=== PATIENT | female | born 1970 | race Caucasian/White ===

== ENCOUNTER 2017-05-29 17:34 | Emergency (ER) | payer MEDICAID ==
--- NOTE | 2017-05-29 18:33 | C.PDOC ---
History Of Present Illness 46 y/o female presents to ED with complaints of cough, congestion and sore throat for 1 week. As per who is at bedside symptoms are keeping patient up at night unable to sleep. Patient reports chest tightness when taking deep breaths denies nasal congestion, fever, runny nose, sob or any other complaints at this time. Time Seen by Provider: 05/29/17 18:23 Chief Complaint (Nursing): Chest Pain History Per: Patient History/Exam Limitations: no limitations Onset/Duration Of Symptoms: Days Current Symptoms Are (Timing): Still Present Quality: Tightness Past Medical History Reviewed: Historical Data, Nursing Documentation, Vital Signs Vital Signs: Last Vital Signs Temp 97.9 F 05/29/17 18:34 Pulse 78 05/29/17 18:34 Resp 18 05/29/17 18:34 BP 155/90 H 05/29/17 18:34 Pulse Ox 100 05/29/17 18:37 - Medical History PMH: Depression, Hypothyroidism Surgical History: No Surg Hx Family History: States: No Known Family Hx - Social History Hx Alcohol Use: No Hx Substance Use: No - Immunization History Hx Tetanus Toxoid Vaccination: No Hx Influenza Vaccination: No Hx Pneumococcal Vaccination: No Review Of Systems Constitutional: Negative for: Fever, Chills ENT: Positive for: Throat Pain. Negative for: Nose Congestion Cardiovascular: Positive for: Chest Pain (tightness) Respiratory: Positive for: Cough Gastrointestinal: Negative for: Nausea, Vomiting Skin: Negative for: Rash Physical Exam - Physical Exam Appears: Non-toxic, No Acute Distress Skin: Normal Color, Warm, Dry, No Rash Head: Atraumatic, Normacephalic Eye(s): bilateral: Normal Inspection Ear(s): Bilateral: Normal Oral Mucosa: Moist Throat: Normal, No Erythema, No Exudate Neck: Normal ROM, Supple Lymphatic: Normal Exam, No Adenopathy Cardiovascular: Rhythm Regular Respiratory: Normal Breath Sounds, No Rales, No Rhonchi, No Wheezing Extremity: Normal ROM, Capillary Refill (<2 seconds) Neurological/Psych: Oriented x3 ED Course And Treatment - Laboratory Results Lab Interpretation: Normal (strep negative) O2 Sat by Pulse Oximetry: 100 (RA) Pulse Ox Interpretation: Normal - Radiology CXR: Interpreted by Me CXR Interpretation: Yes: No Acute Disease Reevaluation Time: 20:36 Reassessment Condition: Improved (Patient remains comfortable in ED. No evidence of respiratory distress or cough noted. she is c/o headache and was treated with Tylenol.) Disposition Counseled Patient/Family Regarding: Studies Performed, Diagnosis, Need For Followup, Rx Given - Disposition Referrals: [facility] [Outside] Disposition: HOME/ ROUTINE Disposition Time: 20:37 Condition: STABLE Prescriptions: Promethazine HCl/Codeine [Prometh-Codein 6.25-10 mg/5 ml] 5 ml PO QID PRN #60 ml PRN Reason: Cough Instructions: Upper Respiratory Infection (ED) Forms: Present (Greek) Print Language: PAKISTANI - Clinical Impression Clinical Impression: Upper respiratory infection - Scribe Statement The provider has reviewed the documentation as recorded by the Kellyibeugenia Ramires All medical record entries made by the Kellyibeugenia were at my direction and personally dictated by me. I have reviewed the chart and agree that the record accurately reflects my personal performance of the history, physical exam, medical decision making, and the department course for this patient. I have also personally directed, reviewed, and agree with the discharge instructions and disposition.
[2017-05-29 20:43] VITALS: BP 135/86; PULSE 70; RESP 16; TEMP 98; O2SAT 98
--- NOTE | 2017-05-30 08:29 | RAD ---
HISTORY: cough COMPARISON: None TECHNIQUE: Chest PA and lateral FINDINGS: LUNGS: No focal consolidation is seen. PLEURA: No pleural effusion is identified. CARDIOVASCULAR: Heart size is within normal limits. OSSEOUS STRUCTURES: Visualized osseous structures are unremarkable. VISUALIZED UPPER ABDOMEN: Unremarkable. OTHER FINDINGS: None. IMPRESSION: No acute cardiopulmonary process seen.
--- NOTE | 2017-05-30 14:10 | CARD ---
APPROVED REPORT EKG Measurement Heart [id number] <Conclusion> Normal sinus rhythm Normal ECG
== END 2017-05-29 20:42 | disposition home or self-care (01) ==
LOC: C.ER 17:34
DX: J06.9 Acute upper respiratory infection, unspecified (principal)

== ENCOUNTER 2017-09-18 20:40 | Emergency (ER) | payer MEDICAID ==
[2017-09-18 21:01] VITALS: RESP 20
[2017-09-18] MEDS ORDERED: Sodium Chloride 0.9% 1,000 ML IV ONE (21:30)
--- NOTE | 2017-09-18 21:35 | C.PDOC ---
History Of Present Illness 47 year old female, whose PMHx includes kidney stones, presents to the ED for evaluation of bilateral lower back pain associated with occasional lower pelvic pain which has been intermittent for 2 weeks. Patient states symptoms are worse with movement and complains of occasional urinary incontinence. She took Tylenol this morning with some relief. Patient reports experiencing similar pain in the past and is concerned for kidney stones. She denies fever, chills, vomiting, dysuria, upper/lower extremity numbness/weakness, or recent trauma/ falls. Time Seen by Provider: 09/18/17 21:13 Chief Complaint (Nursing): Female Genitourinary History Per: Patient History/Exam Limitations: no limitations Onset/Duration Of Symptoms: Intermittent Episodes (2 weeks ) Current Symptoms Are (Timing): Still Present Quality Of Discomfort: "Pain" Associated Symptoms: denies: Fever, Chills, Nausea, Vomiting Additional History Per: Patient Abnormal Vaginal Bleeding: No Past Medical History Reviewed: Historical Data, Nursing Documentation, Vital Signs Vital Signs: Last Vital Signs Temp 98.4 F 09/18/17 20:57 Pulse 78 09/18/17 20:57 Resp 20 09/18/17 20:57 BP 156/90 H 09/18/17 20:57 Pulse Ox 98 09/18/17 21:39 - Medical History PMH: Bipolar Disorder, Depression, Hypothyroidism, Kidney Stones, Schizophrenia Denies: Chronic Kidney Disease Surgical History: No Surg Hx Family History: States: Unknown Family Hx - Social History Hx Alcohol Use: No Hx Substance Use: No - Immunization History Hx Tetanus Toxoid Vaccination: No Hx Influenza Vaccination: No Hx Pneumococcal Vaccination: No Review Of Systems Constitutional: Negative for: Fever, Chills Gastrointestinal: Negative for: Vomiting Genitourinary: Positive for: Incontinence (urinary ), Pelvic Pain (lower ) Musculoskeletal: Positive for: Back Pain (bilateral, lower ) Neurological: Negative for: Weakness, Numbness Physical Exam - Physical Exam Appears: Non-toxic, No Acute Distress Skin: Normal Color, Warm, Dry Head: Atraumatic, Normacephalic Eye(s): bilateral: Normal Inspection Oral Mucosa: Moist Neck: Supple Chest: Symmetrical, No Deformity, No Tenderness Cardiovascular: Rhythm Regular, No Murmur Respiratory: Normal Breath Sounds, No Rales, No Rhonchi, No Wheezing Gastrointestinal/Abdominal: Soft, No Tenderness, No Guarding, No Rebound Back: No CVA Tenderness, Paraspinal Tenderness (mild, to bilateral lower back regions ) Pelvic: Other (mild tenderness to bilateral pelvic quadrants on palpation ) Extremity: Normal ROM, No Tenderness, Capillary Refill (less than 2 seconds ), No Deformity, No Swelling Neurological/Psych: Oriented x3, Normal Speech, Normal Cognition Gait: Steady ED Course And Treatment - Laboratory Results Result Diagrams: 09/18/17 21:52 09/18/17 21:52 Lab Interpretation: No Acute Changes O2 Sat by Pulse Oximetry: 98 (on RA) Pulse Ox Interpretation: Normal - CT Scan/US CT abdomen and pelvis Other Rad Studies (CT/US): Read By Radiologist, Radiology Report Reviewed CT/US Interpretation: Accession No. : [id number]. Patient Name / ID : ARPAN SELLERS / [id number]. Exam Date : 09/18/2017 22:14:05 ( Approved ). Study Comment : Sex / Age : F / 47Y. Creator : LEOLA YARBROUGH. Dictator : Aviation Program Manager : Nurse Discharge Planner : LEOLA YARBROUGH. Approver2 : Report Date : 09/18/2017 23:00:00. My Comment : . [facility] Division of Radiology. [address] [place] [address]. Tel. no. . . . Patient Name: MARLO TREJO . Pt. Address: [address] [place] [address] Rec #: [id number]. [place] [address]: Perez DANIELS,Trisha Hargrove. Pt Order Location: [facility] : 1970 Female Age: 47 Order #: [id number]. Reason for exam: abd pain. . . . . . CT Scan. . . ABD PELVIS W/O PO OR IV CONT Exam Date: 09/18/17. . This imaging exam was performed at [facility]. EXAM: CT Abdomen and Pelvis Without Intravenous Contrast. . CLINICAL HISTORY : 47 years old, female; Pain; Abdominal pain; Flank; Lower; Additional info: Abd pain. . TECHNIQUE: Axial computed tomography images of the abdomen and pelvis without. intravenous contrast. All CT scans at this facility use one or more dose. reduction techniques, viz.: automated exposure control; ma/kV adjustment per. patient size (including targeted exams where dose is matched to indication;. i.e. head); or iterative reconstruction technique. Coronal and sagittal reformatted images were created and reviewed. . COMPARISON: No relevant prior studies available. . FINDINGS: Lung bases: Unremarkable. No mass. No consolidation. . ABDOMEN: Liver: There is diffuse mild enlargement of the liver measuring 19.6 cm. Gallbladder and bile ducts: Unremarkable. No calcified stones. No ductal. dilation. Pancreas: Unremarkable. No ductal dilation. Spleen: There is mild nonspecific splenomegaly measuring 15 cm. Adrenals: Unremarkable. No mass. Kidneys and ureters: Unremarkable. No obstructing stones. No. hydronephrosis. Stomach and bowel: Unremarkable. No obstruction. No mucosal thickening. . PELVIS: Appendix: No appendix is specifically identified. There is no evidence of fluid collections or inflammatory stranding in the. right lower quadrant. Bladder: Unremarkable. No stones. Reproductive: There are two low density structures in the left ovary. measuring up to 2 cm likely ovarian follicles. . ABDOMEN and PELVIS: Intraperitoneal space: Unremarkable. No free air. No significant fluid. collection. Bones/joints: No acute fracture. No dislocation. Soft tissues: Unremarkable. Vasculature: Unremarkable. No abdominal aortic aneurysm. Lymph nodes: Unremarkable. No enlarged lymph nodes. . IMPRESSION: No acute findings. . No nephrolithiasis or obstructive uropathy. . Mild hepatosplenomegaly. . Dictated By: Leola Durán MD. Dictated Date/Time: 09/18/172299. Signed By: Leola Yarbrough MD. Date Signed: 09/18/172299. Transcribed By: [facility]. Transcribe Date/Time : 09/18/172299. ADIA/BEST Progress Note: Bloodwork, urinalysis, CT A/P ordered and reviewed. Toradol IVP and IV Fluids administered. Reevaluation Time: 23:38 Reassessment Condition: Improved (Patient remains comfortable in ED.) Disposition Counseled Patient/Family Regarding: Studies Performed, Diagnosis, Need For Followup, Rx Given - Disposition Referrals: Carlie Guzman APN [Advanced Practice Nurse] - Disposition: HOME/ ROUTINE Disposition Time: 23:44 Condition: STABLE Prescriptions: Cyclobenzaprine [Cyclobenzaprine HCl] 10 mg PO TID PRN #14 tab PRN Reason: Muscle Spasm Instructions: Low Back Pain in Adults Forms: [employer] (Nigerian) Print Language: QATARI - Clinical Impression Clinical Impression: Musculoskeletal back pain - Scribe Statement The provider has reviewed the documentation as recorded by the Scribe (Kacey Puente) Provider Attestation: All medical record entries made by the Scribe were at my direction and personally dictated by me. I have reviewed the chart and agree that the record accurately reflects my personal performance of the history, physical exam, medical decision making, and the department course for this patient. I have also personally directed, reviewed, and agree with the discharge instructions and disposition.
[2017-09-18] MEDS ORDERED: Sodium Chloride 0.9% 1,000 ML ONE (21:55)
[2017-09-18 21:58] LABS: HCG,QUALITATIVE URINE NEGATIVE (NEGATIVE)
[2017-09-18 22:03] LABS: SQUAMOUS EPITHIAL 4 /hpf (0-5); URINE BILIRUBIN NEGATIVE (NEGATIVE); URINE BLOOD NEGATIVE (NEGATIVE); URINE CLARITY Clear (Clear); URINE COLOR Straw (YELLOW); URINE GLUCOSE (UA) NORMAL (Normal); URINE LEUKOCYTE ESTERASE NEG Leu/uL (Negative); URINE PROTEIN NEGATIVE (NEGATIVE); URINE UROBILINOGEN NORMAL mg/dL (0.2-1.0)
[2017-09-18 22:05] LABS: BASO % 0.2 % (0.0-2.0); EOS % 0.5 % (0.0-4.0); HEMOGLOBIN 11.9 g/dL (11.0-16.0); LYMPH # 2.3 K/uL (1.0-4.3); LYMPH % 33.4 % (20.0-40.0); MEAN CELL VOLUME 80.7 fL (81.0-99.0); MEAN CORPUSCULAR HEMOGLOBIN 27.6 pg (27.0-31.0); MEAN CORPUSCULAR HGB CONC 34.2 g/dL (33.0-37.0); MEAN PLATELET VOLUME 8.5 fL (7.2-11.7); MONO # 0.5 K/uL (0.0-0.8); MONO % 6.9 % (0.0-10.0); NEUT # 4.1 K/uL (1.8-7.0); NRBC % 0.2 % (0.0-2.0); RBC 4.33 Mil/uL (3.80-5.20); RED CELL DISTRIBUTION WIDTH 13.4 % (11.5-14.5); WHITE BLOOD COUNT 6.9 K/uL (4.8-10.8)
[2017-09-18 22:08] LABS: ALB/GLOB RATIO 1.2 (1.0-2.1); ALBUMIN 4.1 g/dL (3.5-5.0); ALT/SGPT 36 U/L (9-52); AST/SGOT 39 U/L (14-36); BLOOD UREA NITROGEN 10 mg/dL (7-17); CALCIUM 8.5 mg/dl (8.6-10.4); GFR AFRICAN-AMERICAN > 60; GFR NON-AFRICAN AMERICAN > 60
--- NOTE | 2017-09-18 23:01 | CT ---
EXAM: CT Abdomen and Pelvis Without Intravenous Contrast CLINICAL HISTORY: 47 years old, female; Pain; Abdominal pain; Flank; Lower; Additional info: Abd pain TECHNIQUE: Axial computed tomography images of the abdomen and pelvis without intravenous contrast. All CT scans at this facility use one or more dose reduction techniques, viz.: automated exposure control; ma/kV adjustment per patient size (including targeted exams where dose is matched to indication; i.e. head); or iterative reconstruction technique. Coronal and sagittal reformatted images were created and reviewed. COMPARISON: No relevant prior studies available. FINDINGS: Lung bases: Unremarkable. No mass. No consolidation. ABDOMEN: Liver: There is diffuse mild enlargement of the liver measuring 19.6 cm. Gallbladder and bile ducts: Unremarkable. No calcified stones. No ductal dilation. Pancreas: Unremarkable. No ductal dilation. Spleen: There is mild nonspecific splenomegaly measuring 15 cm. Adrenals: Unremarkable. No mass. Kidneys and ureters: Unremarkable. No obstructing stones. No hydronephrosis. Stomach and bowel: Unremarkable. No obstruction. No mucosal thickening. PELVIS: Appendix: No appendix is specifically identified. There is no evidence of fluid collections or inflammatory stranding in the right lower quadrant. Bladder: Unremarkable. No stones. Reproductive: There are two low density structures in the left ovary measuring up to 2 cm likely ovarian follicles. ABDOMEN and PELVIS: Intraperitoneal space: Unremarkable. No free air. No significant fluid collection. Bones/joints: No acute fracture. No dislocation. Soft tissues: Unremarkable. Vasculature: Unremarkable. No abdominal aortic aneurysm. Lymph nodes: Unremarkable. No enlarged lymph nodes. IMPRESSION: No acute findings. No nephrolithiasis or obstructive uropathy. Mild hepatosplenomegaly.
[2017-09-18 23:58] VITALS: BP 150/90; PULSE 70; TEMP 97.6; O2SAT 96
== END 2017-09-18 23:58 | disposition home or self-care (01) ==
LOC: C.ER 20:40
DX: M54.5 Low back pain (principal)
CPT/HCPCS: 74176; 80053; 81001; 84703; 85025; 96361; 96374; 99283; J1885; J7040

== ENCOUNTER 2018-06-03 19:18 | Emergency (ER) | payer MEDICAID ==
--- NOTE | 2018-06-03 19:37 | C.PDOC ---
History Of Present Illness 47 year old female presents to the ED c/o cough, congestion for the last 2 weeks. Contrary to triage patient denies SOB on exertion. Patient states she is not able to sleep at night due to her cough. Patient saw her PMD who gave her an albuterol inhaler. Patient denies fever, chills, headache, CP, palpitations, rash, weakness, numbness. Time Seen by Provider: 06/03/18 19:36 Chief Complaint (Nursing): Cough, Cold, Congestion History Per: Patient History/Exam Limitations: no limitations Onset/Duration Of Symptoms: Days Current Symptoms Are (Timing): Still Present Recent travel outside of the [place]: No Additional History Per: Patient Past Medical History Reviewed: Historical Data, Nursing Documentation, Vital Signs Vital Signs: Last Vital Signs Temp 98.2 F 06/03/18 19:19 Pulse 74 06/03/18 19:19 Resp 20 06/03/18 19:19 BP 135/82 06/03/18 19:19 Pulse Ox 99 06/03/18 19:19 - Medical History PMH: Bipolar Disorder, Depression, Hypothyroidism, Kidney Stones, Schizophrenia Denies: Chronic Kidney Disease Surgical History: No Surg Hx Family History: States: Unknown Family Hx - Social History Hx Alcohol Use: No Hx Substance Use: No - Immunization History Hx Tetanus Toxoid Vaccination: No Hx Influenza Vaccination: No Hx Pneumococcal Vaccination: No Review Of Systems Constitutional: Negative for: Fever, Chills ENT: Positive for: Nose Congestion Cardiovascular: Negative for: Chest Pain, Palpitations Respiratory: Positive for: Cough. Negative for: Shortness of Breath Gastrointestinal: Negative for: Nausea, Vomiting, Abdominal Pain Skin: Negative for: Rash Neurological: Negative for: Weakness, Numbness, Headache Physical Exam - Physical Exam Appears: Non-toxic, No Acute Distress Skin: Warm, Dry Head: Normacephalic Eye(s): bilateral: Normal Inspection Oral Mucosa: Moist Throat: No Erythema, No Exudate Neck: Supple Chest: Symmetrical Cardiovascular: Rhythm Regular Respiratory: No Rales, No Rhonchi, No Wheezing Gastrointestinal/Abdominal: Soft, No Tenderness, No Guarding, No Rebound Extremity: Bilateral: Atraumatic, Normal Color And Temperature, Normal ROM Neurological/Psych: Oriented x3, Normal Speech, Normal Cognition Gait: Steady ED Course And Treatment ECG: Interpreted By Me, Viewed By Me ECG Rhythm: Sinus Rhythm (71), Nonspecific Changes O2 Sat by Pulse Oximetry: 99 (On RA) Pulse Ox Interpretation: Normal Progress Note: Plan: - Tessalon perles 100 mg PO. - Zithromax 500 mg PO. - Influenza. - Rapid adia. - Throat culture Reevaluation Time: 21:07 Reassessment Condition: Improved Medical Decision Making Medical Decision Making: Upon provider reevaluation patient is feeling better, is medically stable, and requires no further treatment in the ED at this time. Patient will be discharged home with Rx for zithromax, tessalon pereles. Counseling was provided and all questions were answered regarding diagnosis and need for follow up with the referred clinic. There is agreement to discharge plan. Return if symptoms persist or worsen. Disposition Counseled Patient/Family Regarding: Studies Performed, Diagnosis, Need For Followup, Rx Given - Disposition Referrals: Chucky Luis MD [Staff Provider] - Disposition: HOME/ ROUTINE Disposition Time: 19:37 Condition: FAIR Additional Instructions: Please return if symptoms recur Prescriptions: Azithromycin [Zithromax Tri-Nikita] 500 mg PO DAILY #3 tablet Benzonatate [Tessalon Perles] 100 mg PO TID PRN #21 sgl PRN Reason: Cough Instructions: Cough in Adults, Upper Respiratory Infection (ED) Forms: [employer] (Macedonian) - Clinical Impression Clinical Impression: Cough in adult, Upper respiratory infection - Scribe Statement The provider has reviewed the documentation as recorded by the Scribe Sky Olson All medical record entries made by the Scribe were at my direction and personally dictated by me. I have reviewed the chart and agree that the record accurately reflects my personal performance of the history, physical exam, medical decision making, and the department course for this patient. I have also personally directed, reviewed, and agree with the discharge instructions and disposition.
[2018-06-03 19:53] LABS: INFLUENZA A B NEGATIVE FOR FLU A/B (NEGATIVE)
[2018-06-03 21:07] VITALS: BP 149/96; PULSE 69; RESP 18; TEMP 97.8
[2018-06-03 21:08] VITALS: O2SAT 99
== END 2018-06-03 21:16 | disposition home or self-care (01) ==
LOC: C.ER 19:18
DX: J06.9 Acute upper respiratory infection, unspecified (principal); R05 Cough; F20.9 Schizophrenia, unspecified; E03.9 Hypothyroidism, unspecified